=== PATIENT | female | born 1980 | race African-American/Black ===

== ENCOUNTER 2025-09-05 09:34 | Outpatient (CLI) | payer OTHER | END 2025-09-05 09:35 | disposition home or self-care (01) | LOC: CT 09:34 | PROVIDERS: ATTEND Nurse Practitioner Family | DX: K43.9 Ventral hernia without obstruction or gangrene (principal); D25.9 Leiomyoma of uterus, unspecified; N32.89 Other specified disorders of bladder | CPT/HCPCS: 74178 ==